=== PATIENT | male | born 1935 | race Hispanic/Latino ===

== ENCOUNTER 2016-10-19 12:12 | Outpatient (CLI) | payer MEDICARE, OTHER ==
[2016-10-19 12:45] LABS: Blood Urea Nitrogen 13 mg/dL (9-20)
[2016-10-19] MEDS ORDERED: NACL ONE (12:59)
--- NOTE | 2016-10-19 16:54 | Cat Scan Report ---
CT ANGIOGRAPHY OF THE ABDOMEN AND PELVIS WITH 3-D RECONSTRUCTED IMAGES: Today's study is compared to the previous examination without contrast on 04/23/16. The origin of the celiac axis is patent. There is extensive calcification at the origin of the SMA with mild stenosis of the proximal SMA. The renal arteries are widely patent. There is an infrarenal abdominal aortic aneurysm with aortoiliac endovascular stent. There is no evidence of endoleak. The maximum diameter of the aneurysm is 5.1 cm. Extensive atheromatous calcification is seen throughout the iliac arteries which are widely patent. 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 The right hypogastric is patent. The liver and spleen are unremarkable. Aerobilia is again noted without interval change. There is pancreatic atrophy and bilateral renal cysts, both of which are stable. Diverticulosis of the distal colon is evident with no radiographic evidence of diverticulitis. There are no pelvic fluid collections or mesenteric inflammatory changes. A severe chronic compression fracture of T12 is again noted. Chronic compression deformities in the upper lumbar spine are also stable. No acute fractures or subluxations are identified. IMPRESSION: 1. Interval placement of aortoiliac endovascular stent graft with no evidence of endoleak. The infrarenal abdominal aortic aneurysm measures 5.1 cm in maximum dimension. 2. Mild stenosis of the proximal SMA with patency of the celiac axis and renal arteries. 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 Extensive atheromatous calcifications are seen throughout the iliac vessels. 3. Stable pancreatic atrophy, bilateral renal cysts, aerobilia, and multiple additional vertebral abnormalities.
[2016-10-21] MEDS ORDERED: NEURONTIN ONE (08:43)
[2016-10-21] MEDS ORDERED: APRESOLINE ONE (08:43)
[2016-10-21] MEDS ORDERED: TYLENOL ONE (08:43)
[2016-10-21] MEDS ORDERED: BABY ASPIRIN ONE (08:43)
== END 2016-10-19 12:13 | disposition home or self-care (01) ==
LOC: CT 12:12
PROVIDERS: ATTEND Surgery Vascular Surgery
DX: I65.23 Occlusion and stenosis of bilateral carotid arteries (principal); N28.1 Cyst of kidney, acquired; I71.4 Abdominal aortic aneurysm, without rupture; I70.8 Atherosclerosis of other arteries; K86.89 Other specified diseases of pancreas; Z95.828 Presence of other vascular implants and grafts; K57.30 Diverticulosis of large intestine without perforation or abscess without bleeding; S22.089A Unspecified fracture of T11-T12 vertebra, initial encounter for closed fracture; X58.XXXA Exposure to other specified factors, initial encounter; Y93.89 Activity, other specified; Y92.89 Other specified places as the place of occurrence of the external cause; Y99.8 Other external cause status
CPT/HCPCS: 36415; 74174; 82565; 84520; Q9967

== ENCOUNTER 2016-11-29 12:22 | Outpatient (CLI) | payer MEDICARE, OTHER ==
[2016-11-29] MEDS ORDERED: NACL ONE (13:05)
--- NOTE | 2016-11-30 12:21 | Cat Scan Report ---
CT ANGIOGRAM NECK HISTORY: Occlusion and stenosis of bilateral carotid arteries. TECHNIQUE: Helical CT following IV contrast. Sagittal and coronal reformatted images. Three-dimensional volume rendering technique. COMPARISON: No relevant comparison. FINDINGS: The visualized aortic arch and innominate artery are widely patent. The proximal bilateral subclavian arteries are widely patent. Within the right carotid system, there are moderate partially calcified irregular plaques in the bifurcation and proximal right ICA. There is a focal area of narrowing in the proximal right ICA with stenosis measuring 60%. The remainder of the right carotid system is widely patent. Within the left carotid system, there are moderate partially calcified irregular plaques in the carotid bulb and proximal left ICA. Stenosis in the proximal left ICA measures 35%. The bilateral vertebral arteries are widely patent with less than 20% stenosis. The left vertebral artery is dominant. 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 60% stenosis in the proximal right ICA. 35% stenosis in the proximal left ICA.
== END 2016-11-29 12:23 | disposition home or self-care (01) ==
LOC: CT 12:22
PROVIDERS: ATTEND Surgery Vascular Surgery
DX: I65.23 Occlusion and stenosis of bilateral carotid arteries (principal)
CPT/HCPCS: 70498; Q9967

== ENCOUNTER 2017-02-21 09:50 | Outpatient (CLI) | payer MEDICARE, OTHER ==
[2017-02-21 11:07] LABS: Blood Urea Nitrogen 18 mg/dL (9-20)
[2017-02-21] MEDS ORDERED: NACL ONE (11:22)
--- NOTE | 2017-02-21 12:25 | Cat Scan Report ---
CTA abdomen and pelvis: Treated abdominal aortic aneurysm followup. Transverse images were obtained through the low chest to the ischium with coronal and sagittal 2-D reformatted images. Intravenous and oral contrast administered. Rotational 3-D image included. Comparison is made to prior exam in October 2016. The visualized lung bases are clear. There is evidence of chronic lung disease. Multiple large bilateral renal cysts. Small left hepatic lobe cyst. Multilevel vertebral compression and degenerative disc changes. Severe bony demineralization. No significant change from prior exam. The suprarenal abdominal aorta is unremarkable. The origin of the celiac artery is patent. There is an eccentric stenosis greater than 50% involving the proximal SMA. The proximal portion of the stent graft overlies both patent renal arteries. The graft inserts into the common iliac arteries bilaterally. The graft is patent. There is surrounding thrombus with no evidence of contrast extravasation. No change in the combined aortic diameter currently measuring 5.3 cm. The iliac and common femoral arteries are patent as are the femoral bifurcations bilaterally. Impressions: 1. Stable abdominal aortic aneurysm with patent endovascular stent graft. 2. Several additional stable abdominal and spinal findings.
== END 2017-02-21 09:51 | disposition home or self-care (01) ==
LOC: CT 09:50
PROVIDERS: ATTEND Surgery Vascular Surgery
DX: I65.23 Occlusion and stenosis of bilateral carotid arteries (principal); I71.4 Abdominal aortic aneurysm, without rupture; N28.1 Cyst of kidney, acquired; J98.4 Other disorders of lung; K76.89 Other specified diseases of liver; M47.819 Spondylosis without myelopathy or radiculopathy, site unspecified; Z95.828 Presence of other vascular implants and grafts
CPT/HCPCS: 36415; 74174; 82565; 84520; Q9967